=== PATIENT | female | born 1995 | race Caucasian/White ===

== ENCOUNTER 2024-11-13 10:15 | Inpatient (IN) | payer BC ==
[2024-11-13] MEDS ORDERED: TRANEXAMIC 1,000 MG/100ML-NACL 1,000 MG in EMPTY BAG 1 BAG IV PRN (15:43)
[2024-11-13] MEDS ORDERED: TERBUTALINE 1 MG/ML VIAL SQ PRN (15:43)
[2024-11-13] MEDS ORDERED: METHYLERGONOVINE 0.2 MG/ML 1 ML AMP IM PRN (15:43)
[2024-11-13] MEDS ORDERED: miSOPROStoL 200 MCG TAB PO PRN (15:43)
[2024-11-13] MEDS ORDERED: OXYTOCIN 10 UNIT/ML 1 ML VIAL IM PRN (15:43)
[2024-11-13] MEDS ORDERED: LIDOCAINE 0.5% (PF) 5 MG/ML (50 ML SDV) SQ PRN (15:43)
[2024-11-13] MEDS ORDERED: CARBOPROST TROMETHAMINE 250 MCG/ML 1 ML AMP IM PRN (15:43)
[2024-11-13] MEDS ORDERED: miSOPROStoL 200 MCG TAB RECTAL PRN (15:43)
[2024-11-13] MEDS ORDERED: OXYTOCIN 30 UNITS/500 ML NS 30 UNIT in SALINE 1 500ML.BAG IV SCH (15:45)
[2024-11-13] MEDS: DINOPROSTONE 10 MG INSERT.ER VAGINAL ONE ×2 (16:54→17:23)
[2024-11-13] MEDS ORDERED: NALBUPHINE 10 MG/ML (10 ML MDV) IV PRN (16:59)
[2024-11-13 17:01] LABS: Basophils # (A) 0.07 10*3/uL (0.00-0.10); Basophils % (A) 0.6 %; Eosinophils # (A) 0.04 10*3/uL (0.04-0.35); Eosinophils % (A) 0.3 %; HCT 35.2 % (37.2-46.3); HGB 12.5 g/dL (12.0-15.0); Lymphocytes # (A) 3.27 10*3/uL (0.90-5.00); MCH 31.4 pg (27.0-32.0); MCHC 35.5 g/dL (32.0-37.0); MCV 88.4 fL (80.0-97.0); Mean Platelet Volume 11.6 fL (9.5-12.2); Monocytes # (A) 1.19 10*3/uL (0.20-1.00); Monocytes % (A) 9.5 %; Neutrophils # (A) 7.97 10*3/uL (1.80-7.70); Neutrophils % (A) 63.2 %; Platelet Count 191 10*3/uL (140-440); RBC 3.98 10*6/uL (4.10-5.20); RDW 12.5 % (11.5-14.5); WBC 12.59 10*3/uL (4.50-10.00)
[2024-11-13] MEDS: LACTATED RINGERS 1,000 ML IV SCH (17:22)
[2024-11-14] MEDS: OXYTOCIN 30 UNITS/500 ML NS 30 UNIT in SALINE 1 500ML.BAG IV SCH (06:20)
--- NOTE | 2024-11-14 19:49 | P.ANPRN ---
Procedure Note - Anesthesia - Epidural/Spinal Epidural Continuous Date of Procedure: 11/14/24 Procedure Start Time: 19:20 Procedure Stop Time: 19:30 Location of Patient: OB Indication: Analgesia, Requested by Surgeon Sedation Type: Awake Preparation: Sterile Dressing Position: Sitting Catheter: Indwelling Needle Guage: 20 Blood Aspirated: No Pain Paresthesia on Injection Noted: No Events: Uneventful and Well Tolerated
--- NOTE | 2024-11-14 20:09 | P.HPOB ---
History of Present Illness H&P Date: 11/13/24 Chief Complaint: IUP @ 40 0/7 weeks, oligohydramnios This is a 29 yo at 40 0/7 weeks that presents for induction of labor secondary to oligohydramnios. She was seen for routine visit today US done and DEION was noted to be 4, NST was category 1. she has been receiving routine care that has been uncomplicated up to this point. Patient is noting good FM, denies VB or loss of fluid. On bloodwork this pt has a blood type of A neg, rubella status immune, HBsAG neg, HIV neg, GBS neg Review of Systems Constitutional: Denies chills, Denies fatigue, Denies fever Ears, nose, mouth and throat: Denies headache Cardiovascular: Reports leg edema Respiratory: Denies dyspnea Gastrointestinal: Denies constipation, Denies diarrhea, Denies nausea, Denies vomiting Genitourinary: Reports Past Medical History - Past Family History Father Family Medical History: Congestive Heart Failure (CHF) Medications and Allergies Home Medications Medication Instructions Recorded Confirmed Type Pnv 11/Iron Fum/Folic Acid/Om3 1 each PO DAILY 11/13/24 11/13/24 History [Wesnate Dha Softgel] Allergies Allergy/AdvReac Type Severity Reaction Status Date / Time No Known Allergies Allergy Verified 11/13/24 16:24 Exam Osteopathic Statement: *. No significant issues noted on an osteopathic structural exam other than those noted in the History and Physical/Consult. in general this is a well nourished well developed female in no acute distress, breathing is non labored, abdomen is gravid, on cervical exam 1/60/-3 vertex presentation. heart tones are noted to be cat with irregular contractions. Results Result Diagrams: 11/13/24 16:41 Assessment and Plan (1) Term Current Visit: Yes Status: Acute Code(s): Z34.90 - ENCNTR FOR SUPRVSN OF NORMAL , UNSP, UNSP TRIMESTER SNOMED Code(s): 97498717 (2) Oligohydramnios Current Visit: Yes Status: Acute Code(s): O41.00X0 - OLIGOHYDRAMNIOS, UNSP TRIMESTER, NOT APPLICABLE OR UNSP SNOMED Code(s): 50381010 Plan: Admit to labor and delivery clear liquids as tolerated nubain if desired, she declines epidural
[2024-11-14] MEDS ORDERED: TRANEXAMIC 1,000 MG/100ML-NACL 1,000 MG in EMPTY BAG 1 BAG IV PRN (20:50)
[2024-11-14] MEDS: CITRIC ACID-SODIUM CITRATE 15 ML CUP PO ONE (21:03)
--- NOTE | 2024-11-14 21:52 | P.OP ---
Date of Procedure: 11/14/24 Preoperative Diagnosis: IUP at 41/7 weeks, oligohydramnios, arrest of dilation Postoperative Diagnosis: Same Procedure(s) Performed: Primary low-transverse section Anesthesia: epidural Surgeon: Juliet Courtney Saw Offbearer #1: Roxie Pavon Estimated Blood Loss (ml): 466 IV fluids (ml): 1,000 Urine output (ml): 300 (Clear yellow) Pathology: none sent Condition: stable Disposition: observation Indications for Procedure: 29-year-old 1 para 0 at 40 and 1 sevenths weeks presented last evening for Cervidil induction of labor secondary to oligohydramnios. DEION in the office noted to be 4. Patient was admitted and Cervidil was placed. Patient did well through the evening becoming uncomfortable. Patient was noted to be 4 to 5 cm this morning amniotomy was attempted with scant fluid. Patient made good progress toward 8 cm, she has since stalled for the last 8 hours with no change in increasing caput formation. Patient did receive an epidural for analgesia. No further descent or dilation has been appreciated. Increased cervical swelling has been noted in addition. Patient was noted to be 8 to 9 cm, and is now noted to be 7. Findings of exam are discussed with patient and patient's family. Questions are answered. Together we made a decision to proceed with primary low-transverse section Operative Findings: Viable male delivered, 8 pounds 3 ounces OP presentation Description of Procedure: The patient was prepped and draped in the usual fashion after spinal anesthesia was administered by the anesthesia department. A Pfannenstiel incision was made and extended of the abdominal cavity without difficulty. The bladder peritoneum was elevated and incised and reflected distally. A 2 cm incision was made in the transverse plane of the lower uterine segment to enter the uterus at which time clear fluid was noted. The incision was extended in both directions using the bandage scissors. The head and straight occiput posterior presentation was encountered within the field and delivered up and through the incision where the nose and mouth were thoroughly suctioned. Remainder of the infant was delivered onto the surgical field where the cord was doubly clamped, cut, and the infant was passed for resuscitative measures with weight and Apgars as noted above. The placenta was delivered manually, intact, and was grossly normal with a grossly normal three-vessel cord. The uterus was exteriorized and the interior cavity of the uterus swept of any remaining placental and membranous fragments with a laparotomy sponge. The margins of the incision were grasped with Allis clamps and the incision closed in 2 layers. First layer was a running locking layer of 0 Vicryl from margin to margin followed by a second layer of imbricating 0 Vicryl from margin to margin. Any small points of bleeding were then made hemostatic with the Bovie. Once hemostasis was achieved, the posterior cul-de-sac was suctioned with a guard and the uterine and ovarian findings are as noted above. The uterus was replaced within the abdominal cavity and the gutters swept of any remaining blood fluid or clot. The incision was again reexamined and hemostasis was noted to be excellent. Any small point of bleeding were made hemostatic with the Bovie. Once hemostasis was achieved the parietal peritoneum was loosely reapproximated. The layer of muscles were examined and made hemostatic with the Bovie. Attention was then turned to the fascia which was closed with 0 Vicryl in a running fashion from 1 lateral edge to the other the subcutaneous tissues were irrigated, made hemostatic with the Bovie, and reapproximated with a running stitch of 30 Vicryl the skin was reapproximated with 4-0 Vicryl. Estimated blood loss for the case was approximately 466 mL. All sponge instrument and needle counts are correct. There were no complications. The patient tolerated the procedure well and proceeded to the recovery room in stable condition. Both mother and infant are resting comfortably in recovery.
[2024-11-14] MEDS ORDERED: diphenhydrAMINE 25 MG CAP PO PRN (22:01)
[2024-11-14] MEDS ORDERED: diphenhydrAMINE 50 MG/ML 1 ML VIAL IVP PRN ×2 (22:01)
[2024-11-14] MEDS ORDERED: NALOXONE 0.4 MG/ML 1 ML VIAL IV PRN (22:01)
[2024-11-14] MEDS ORDERED: diphenhydrAMINE 50 MG CAP PO PRN (22:01)
[2024-11-14] MEDS ORDERED: ONDANSETRON 4 MG/2 ML VIAL IVP PRN (22:01)
[2024-11-14] MEDS ORDERED: ZOLPIDEM 5 MG TAB PO PRN (22:01)
[2024-11-14] MEDS ORDERED: METOCLOPRAMIDE 5 MG/ML 2 ML VIAL IVP PRN (22:01)
[2024-11-14] MEDS ORDERED: SIMETHICONE 80 MG CHEWABLE PO PRN (22:01)
[2024-11-14] MEDS: ceFAZolin 2 GM in DEXTROSE 5% IN WATER 50 ML IVPB ONE (22:24)
[2024-11-14] MEDS: ACETAMINOPHEN IV (For NPO) 1,000 MG in EMPTY BAG 1 BAG IVPB ONE (23:43)
[2024-11-15] MEDS: ACETAMINOPHEN TAB 500 MG TAB PO SCH (00:29)
[2024-11-15] MEDS: LACTATED RINGERS 1,000 ML IV SCH (00:31)
[2024-11-15] MEDS: IBUPROFEN IV 800 MG in SODIUM CHLORIDE 0.9% 250 ML IV ONE (04:17)
[2024-11-15] MEDS: Rhogam IMMUNE GLOBULIN 1,500 UNIT/1 ML IM ONE (06:23)
--- NOTE | 2024-11-15 06:29 | P.PN ---
Progress Note - Text Progress Note Date: 11/15/24 S/P C/S under epidural with Duramorph. POD #1. Pain control is adequate. No anesthesia related complications.
[2024-11-15 06:31] LABS: Basophils # (A) 0.04 10*3/uL (0.00-0.10); Basophils % (A) 0.2 %; Eosinophils # (A) 0.01 10*3/uL (0.04-0.35); HCT 29.3 % (37.2-46.3); HGB 10.4 g/dL (12.0-15.0); Lymphocytes # (A) 3.18 10*3/uL (0.90-5.00); Lymphocytes % (A) 15.6 %; MCH 31.9 pg (27.0-32.0); MCHC 35.5 g/dL (32.0-37.0); MCV 89.9 fL (80.0-97.0); Mean Platelet Volume 11.9 fL (9.5-12.2); Monocytes # (A) 1.78 10*3/uL (0.20-1.00); Monocytes % (A) 8.7 %; Neutrophils % (A) 74.6 %; Platelet Count 151 10*3/uL (140-440); RBC 3.26 10*6/uL (4.10-5.20); RDW 12.8 % (11.5-14.5); WBC 20.39 10*3/uL (4.50-10.00)
[2024-11-15] MEDS: SENNOSIDES-DOCUSATE SODIUM 1 EACH TAB PO SCH (07:47)
--- NOTE | 2024-11-15 09:04 | P.PNOBGPC ---
Subjective - Subjective Principal diagnosis: Postop day 1 Interval history: Patient is doing well postoperatively. She is ambulating without difficulty. Currently awaiting a spontaneous void. She states pain is well-controlled. She is breast-feeding with some difficulty Lochia is minimal to moderate Patient reports: Reports appetite normal, Reports pain well controlled, Reports ambulating normally : doing well Objective - Vital Signs Latest vital signs: Vital Signs Temp Pulse Resp BP Pulse Ox 11/15/24 08:00 97.6 F 64 18 96/64 100 11/15/24 04:00 68 16 130/60 98 11/15/24 00:02 66 16 133/62 11/14/24 23:47 74 16 134/66 11/14/24 23:32 76 16 131/64 11/14/24 23:17 76 16 134/66 11/14/24 23:02 74 16 135/71 11/14/24 22:47 70 18 125/61 11/14/24 22:32 58 L 16 125/59 11/14/24 22:17 69 16 124/58 94 L 11/14/24 22:02 97 F L 84 16 153/63 97 Intake and Output 11/14/24 11/15/24 11/15/24 22:59 06:59 14:59 Intake Total 31.667 600 Output Total 466 2700 Balance -434.333 -2100 Intake: Intake, IV Titration 31.667 Amount Oxytocin 30 Units/500 ml 31.667 Ns 30 unit In Saline 1 500ml.bag @ Per Protocol IV .Q0M [facility] Rx#:[id number] Oral 600 Output: Urine 2600 Uretheral ([place]) 1700 Output, Quantitative 466 100 Blood Loss Other: Voiding Method Indwelling Catheter # Voids 1 - Exam Extremities: Present: normal Abdomen: Present: normal appearance, soft Incision: Present: normal, dry, intact Uterus: Present: normal, firm - Labs Labs: Abnormal Lab Results - Last 24 Hours (Table) 11/15/24 Range/Units 05:52 WBC 20.39 H (4.50-10.00) 10*3/uL RBC 3.26 L (4.10-5.20) 10*6/uL Hgb 10.4 L (12.0-15.0) g/dL Hct 29.3 L (37.2-46.3) % Immature Gran # 0.18 H (0.00-0.04) 10*3/uL Neutrophils # 15.20 H (1.80-7.70) 10*3/uL Monocytes # 1.78 H (0.20-1.00) 10*3/uL Eosinophils # 0.01 L (0.04-0.35) 10*3/uL Assessment and Plan (1) Term Current Visit: Yes Status: Acute Code(s): Z34.90 - ENCNTR FOR SUPRVSN OF NORMAL , UNSP, UNSP TRIMESTER SNOMED Code(s): 77790719 (2) Oligohydramnios Current Visit: Yes Status: Acute Code(s): O41.00X0 - OLIGOHYDRAMNIOS, UNSP TRIMESTER, NOT APPLICABLE OR UNSP SNOMED Code(s): 52134677 (3) Arrest of descent, delivered, current hospitalization Current Visit: Yes Status: Acute Code(s): O62.1 - SECONDARY UTERINE INERTIA SNOMED Code(s): 12478421 (4) Status post section Current Visit: Yes Status: Acute Code(s): Z98.891 - HISTORY OF UTERINE SCAR FROM PREVIOUS SURGERY SNOMED Code(s): 292958751 Plan: Patient is complete. Plan to continue routine postoperative care Anticipate discharge home tomorrow
[2024-11-15] MEDS: PRENATAL VIT-IRON-FOLIC ACID 1 EACH TABLET PO SCH (11:41)
[2024-11-15] MEDS: IBUPROFEN 800 MG TAB PO SCH (11:42)
[2024-11-15] MEDS: IBUPROFEN ORAL SUSP 100 MG/5 ML CUP PO SCH (12:09)
[2024-11-16] MEDS ORDERED: IBUPROFEN 800 MG TAB PO SCH
--- NOTE | 2024-11-16 13:59 | P.DS ---
Providers Date of admission: 11/13/24 15:59 Expected date of discharge: 11/16/24 Attending physician: Alexei Everett Primary care physician: Stated None - Discharge Diagnosis(es) (1) Term Current Visit: Yes Status: Acute (2) Oligohydramnios Current Visit: Yes Status: Acute (3) Arrest of descent, delivered, current hospitalization Current Visit: Yes Status: Acute (4) Status post section Current Visit: Yes Status: Acute Hospital Course: This is a 29-year-old 1 now para 1 that presented to labor and delivery at 40 and 1 sevenths weeks for Cervidil induction of labor, medical induction of labor secondary to oligohydramnios patient had been receiving routine care which have been essentially uncomplicated. Patient was seen for routine visit and was noted to have oligohydramnios, DEION of 4. Patient did well with the Cervidil and was noted to be 4 cm in the morning. Patient progressed through labor to 8 cm. After approximately 8 hours of no change of 8 cm increasing caput formation and suspected occiput posterior presentation was noted. Exam and suspicions were discussed with patient and family and decision was made together to proceed with primary low-transverse section. Patient was taken back to the operating suite where epidural anesthesia was found to be adequate and she delivered a viable male at 2125, weight of 8 pounds 3 ounces in occiput posterior presentation. For full details on the C- section please see the dictated operative report. Patient's postoperative course has been uneventful. And is postoperative day #2 she is ambulating and voiding without difficulty. She is tolerating a regular diet without nausea or vomiting. Her lochia is noted to minimal to moderate. She is breast-feeding without difficulty. Her pain is well-controlled. She would like discharge home later today. Patient Condition at Discharge: Good Plan - Discharge Summary New Discharge Prescriptions: No Action Pnv 11/Iron Fum/Folic Acid/Om3 [Wesnate Dha Softgel] 1 each PO DAILY Discharge Medication List Pnv 11/Iron Fum/Folic Acid/Om3 [Wesnate Dha Softgel] 1 each PO DAILY 11/13/24 [History] Follow up Appointment(s)/Referral(s): Alexei Everett MD [STAFF PHYSICIAN] - 11/29/24 10:00 am (12/27/2024 @ 1:30 PM) Patient Instructions/Handouts: (DC), (GEN) Activity/Diet/Wound Care/Special Instructions: No tub baths or intercourse until 6 weeks . [id number]-rhdhlba ibuprofen 600 mg or 3 tablets every 6 hours as needed for pain. Routine postoperative check in 2 weeks. Should she have any concerns prior to this appointment she is urged to call the office Discharge Disposition: HOME SELF-CARE
[2024-11-16 16:43] VITALS: BP 99/66; PULSE 75; RESP 16; TEMP 98.1
== END 2024-11-16 18:00 | disposition home or self-care (01) | DRG 788 ==
LOC: 4FBP 15:59
PROVIDERS: ADMIT Obstetrics & Gynecology Obstetrics; ATTEND Obstetrics & Gynecology Obstetrics
PROC: 3E0P7VZ Introduction of Hormone into Female Reproductive, Via Natural or Artificial Opening (ICD-10-PCS; 2024-11-13)
PROC: 10D00Z1 Extraction of Products of Conception, Low, Open Approach (ICD-10-PCS; principal; 2024-11-14 21:20)
DX: O41.03X0 Oligohydramnios, third trimester, not applicable or unspecified (principal); O48.0 Post-term pregnancy; O62.1 Secondary uterine inertia; Z37.0 Single live birth; Z3A.40 40 weeks gestation of pregnancy
CPT/HCPCS: 85025; 85461; 86850; 86900; 86901; 88307